=== PATIENT | female | born 2000 | race African-American/Black ===

== ENCOUNTER 2020-07-09 12:41 | Emergency (ER) | payer SELFPAY ==
[~2020-07-09] VITALS: Ht 167.6 cm; Wt 82.0 kg
[2020-07-09 12:45] VITALS: BP 135/80
[2020-07-09] MEDS ORDERED: ACETAMINOPHEN 325MG TABLET PO STA (13:08)
[2020-07-09 13:27] LABS: CLARITY URINE CLEAR (CLEAR); COLOR URINE YELLOW (YELLOW); KETONES URINE NEGATIVE (NEGATIVE); LEUKOCYTE ESTERASE URINE 2+ (NEGATIVE); NITRITE URINE NEGATIVE (NEGATIVE); OCCULT BLOOD URINE NEGATIVE (NEGATIVE); PH URINE >=9.0 (4.5-8.0); PROTEIN URINE NEGATIVE (NEGATIVE); SPECIFIC GRAVITY URINE 1.018 (1.005-1.030); UROBILINOGEN URINE 0.2 E.U./dL (0.2-1.0)
[2020-07-09 13:51] LABS: HEMATOCRIT. 39.7 % (36.0-48.0); HEMOGLOBIN. 12.8 g/dL (12.0-16.0); MEAN CORPUSCULAR HEMOGLOBIN 24.1 pg (28.0-32.0); MEAN PLATELET VOLUME 8.8 fl (7.4-10.4); PLATELET 199 x1000/uL (130-400); RED CELL DISTRIBUTION WIDTH 14.3 % (11.6-14.6)
[2020-07-09 13:55] LABS: CHLORIDE 106 mEq/L (98-107)
[2020-07-09] MEDS ORDERED: NITROFURANTOIN 100MG M/M CAPSULE PO ONE (14:15)
[2020-07-09 16:53] LABS: PLATELET ESTIMATE NORMAL
== END 2020-07-09 14:56 | disposition home or self-care (01) ==
LOC: ER 12:41
DX: Z03.818 Encounter for observation for suspected exposure to other biological agents ruled out (principal); N39.0 Urinary tract infection, site not specified; R03.0 Elevated blood-pressure reading, without diagnosis of hypertension; I49.9 Cardiac arrhythmia, unspecified
CPT/HCPCS: 36415; 71045; 80053; 81003; 81025; 83690; 85025; 87086; 87635; 93005; 99285; C9803